=== PATIENT | male | born 1985 | race Caucasian/White ===

== ENCOUNTER 2016-08-04 22:24 | Emergency (ER) | payer MEDICAID ==
[~2016-08-04] VITALS: Ht 180.3 cm; Wt 76.7 kg
[2016-08-04 22:25] VITALS: BP 136/89
[2016-08-04] MEDS ORDERED: DEXAMETHASONE 4 MG TABLET ONE (22:42)
[2016-08-04] MEDS ORDERED: BICILLIN-LA 1,200,000 UNITS/2 ML IM ONE (23:00)
[2016-08-04] MEDS ORDERED: DEXAMETHASONE 4 MG TABLET PO ONE (23:00)
== END 2016-08-04 23:53 | disposition home or self-care (01) ==
LOC: ED 23:41
DX: J02.0 Streptococcal pharyngitis (principal); F19.10 Other psychoactive substance abuse, uncomplicated
CPT/HCPCS: 96372; 99283; J0561

== ENCOUNTER 2018-12-25 20:05 | Emergency (ER) | payer MEDICAID, OTHER ==
[~2018-12-25] VITALS: Ht 180.3 cm; Wt 82.6 kg
[2018-12-25 20:07] VITALS: BP 116/81
[2018-12-25] MEDS ORDERED: LIDOCAINE-MPF 1%, 5ML ONE (21:55)
[2018-12-25] MEDS ORDERED: LORazepam 2 MG/ML, 1ML ONE (21:56)
[2018-12-25] MEDS ORDERED: DIPH,PERTUSS(ACELL),TET VAC/PF 0.5 ML IM-VACC ONE ×2 (21:57→22:00)
[2018-12-25] MEDS ORDERED: LORazepam 2 MG/ML, 1ML IM ONE (22:00)
[2018-12-25] MEDS ORDERED: LIDOCAINE-MPF 1%, 5ML INFIL ONE (22:00)
== END 2018-12-25 23:00 | disposition home or self-care (01) ==
LOC: ED 22:54
DX: L02.413 Cutaneous abscess of right upper limb (principal); F17.210 Nicotine dependence, cigarettes, uncomplicated
CPT/HCPCS: 10060; 90471; 90715; 96372; 99283; J2060

== ENCOUNTER 2019-11-06 08:21 | Emergency (ER) | payer SELFPAY ==
[~2019-11-06] VITALS: Ht 180.3 cm; Wt 82.4 kg
--- NOTE | 2019-11-06 08:42 | NUR ---
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
--- NOTE | 2019-11-06 08:47 | NUR ---
pt in with C/O abcess to the right AC r/t "shooting up" SAMIRA virk.
[2019-11-06] MEDS ORDERED: LIDOCAINE-MPF 1%, 5ML ONE (09:18)
--- NOTE | 2019-11-06 09:26 | NUR ---
at bedside to complete I&D
[2019-11-06] MEDS ORDERED: DIPH,PERTUSS(ACELL),TET VAC/PF 0.5 ML IM-VACC ONE ×2 (09:28→09:30)
[2019-11-06] MEDS ORDERED: LIDOCAINE-MPF 1%, 5ML INFIL ONE (09:30)
[2019-11-06] MEDS ORDERED: SULFAMETH./TRIMETHOPRIM DS 800MG/160MG TABLET ONE (09:48)
[2019-11-06] MEDS ORDERED: CEPHALEXIN 500 MG CAPSULE ONE (09:48)
[2019-11-06] MEDS ORDERED: SULFAMETH./TRIMETHOPRIM DS 800MG/160MG TABLET PO ONE (10:00)
[2019-11-06] MEDS ORDERED: CEPHALEXIN 500 MG CAPSULE PO ONE (10:00)
[2019-11-06 10:04] VITALS: BP 128/83
--- NOTE | 2019-11-06 10:05 | NUR ---
Patient given discharge instructions and they have confirmed that they understand the instructions. pt verbalized understanding to fill perscripition and take as ordered. pt insturcted to return for wound check per MD order and to bring packing with him. Patient ambulatory with steady gait.
== END 2019-11-06 10:07 | disposition home or self-care (01) ==
LOC: ED 08:59
DX: L02.413 Cutaneous abscess of right upper limb (principal)
CPT/HCPCS: 10060; 90471; 90715